=== PATIENT | male | born 1955 | race Caucasian/White ===

== ENCOUNTER 2016-11-28 20:18 | Emergency (ER) | payer SELFPAY ==
[2016-11-28] MEDS ORDERED: ALBUTEROL INH PREPACK MDI TAKEHOME ONE (21:02)
--- NOTE | 2016-11-28 21:09 | UCPHY ---
H & P Time Seen by Provider: 11/28/16 20:42 Patient Type: Established HPI/ROS: This patient has onset of URI symptoms 2 days prior to arrival with nasal congestion, some sinus pressure in the forehead, right ear pressure moderate intensity and a cough. He noticed over the past 24 hours is cough now associated with wheezing and some sputum production which prompted his visit. He notes no exacerbating or alleviating factors for his symptoms. ROS: No high fevers or chills. HEENT: No sore throat. No drainage from his ear. Slightly muffled hearing in the right ear. Pulmonary: No pleuritic pain. No dyspnea. Cardiovascular: No complaints GI: No vomiting or diarrhea. He does have loose stool over the past 24 hours but only to 3 episodes a day. 7 point ROS is otherwise negative. Past Medical/Surgical History: Otherwise healthy Smoking Status: Never smoked Physical Exam: Physical Exam Vital signs are normal. General: No acute distress HEENT: Nose: Clear discharge bilaterally. No sinus tenderness to percussion. Ears: Right external canals clear right TM is clear with a clear effusion. Left external canal and TM are clear. abnormal findings bilaterally. Oropharynx : No erythema or exudates. No dysphonia. No drooling or stridor. Eyes: Pupils equal and react to light. Extraocular motions are intact. Lungs: Mild expiratory wheeze bilaterally. Faint rhonchi. No rales. Cardiac: Regular rate and rhythm with no murmur gallop or rub Skin: No rash or pallor. Neuro: Alert with no focal deficits noted. Initial differential diagnosis: Serous otitis, URI with cough, viral bronchitis Constitutional: Initial Vital Signs Temperature (C) 36.7 C 11/28/16 20:29 Heart Rate 70 11/28/16 20:29 Respiratory Rate 20 11/28/16 20:29 Blood Pressure 176/88 H 11/28/16 20:29 O2 Sat (%) 95 11/28/16 20:29 O2 Delivery Mode Room Air Allergies/Adverse Reactions: Penicillins Allergy (Verified 11/28/16 20:35) Home Medications: Medication Instructions Recorded Fluticasone Nasal [Flonase Nasal 2 sprays NASAL DAILY #1 mdi 11/28/16 [place]] MDM/Departure - [facility] ED Course/Re-evaluation: I counseled patient regarding his serous otitis and bronchitis. We did dispense an albuterol MDI. This patient appears clinically well without clinical findings to suggest lower respiratory infection, bacterial sinusitis, meningitis or other complicating factors. - Depart Disposition: Home, Routine, Self-Care Clinical Impression: Acute viral bronchitis Serous otitis media Qualifiers: Laterality: right Chronicity: acute Recurrence: not specified as recurrent Qualified Code(s): H65.01 - Acute serous otitis media, right ear Upper respiratory infection Qualifiers: URI type: unspecified viral URI Qualified Code(s): J06.9 - Acute upper respiratory infection, unspecified Condition: Good Instructions: Serous Otitis Media (ED) Additional Instructions: Diagnoses: 1. Serous otitis-right ear 2. Viral bronchitis 3. Viral upper respiratory infection Plan: Humidifier Flonase steroid nasal spray Albuterol inhaler for cough, wheeze or shortness of breath Guaifenesin (Robitussin [id number] mucolytic Humidifier Ibuprofen for discomfort/pressure Supplemental zinc. Most viruses clear in 5-10 days Return if you develop fevers, chills, trouble breathing despite the albuterol or other concerns. Prescriptions: Fluticasone Nasal [Flonase Nasal [place]] 2 sprays NASAL DAILY #1 mdi Referrals: JOANA HINES [Primary Care Provider] - As per Instructions - PQRS PQRS Measurement: SUHAS
[2016-11-28 21:25] VITALS: BP 164/82; PULSE 76; RESP 18; TEMP 98.4; O2SAT 97
== END 2016-11-28 21:26 | disposition home or self-care (01) ==
LOC: CED 20:18
DX: J20.8 Acute bronchitis due to other specified organisms (principal); H65.01 Acute serous otitis media, right ear; J06.9 Acute upper respiratory infection, unspecified
CPT/HCPCS: G0463-PO

== ENCOUNTER 2016-11-29 22:33 | Emergency (ER) | payer OTHER ==
[2016-11-29 22:48] VITALS: RESP 20
--- NOTE | 2016-11-29 22:54 | UCPHY ---
H & P Time Seen by Provider: 11/29/16 22:48 Patient Type: Established HPI/ROS: CHIEF COMPLAINT: Cough HISTORY OF PRESENT ILLNESS: The patient is a 61 year old male presenting with cough that started 4 days ago. The patient was seen here yesterday and diagnosed with viral syndrome and serous otitis media. Since that time he has developed intermittent GRANDA with body aches, no prior Influenza immunization this past fall, so he wonders if this is Influenza or Pneumonia and how contagious he is. He was discharged with albuterol and other symptomatic treatment with OTC Robitussin plain treament. The patient states his cough has progressively worsened throughout the day today, now keeping him up. He tried the inhaler, Robitussin, and Ibuprofen, for symptomatic Rx, but found no sustained relief. He developed a sense of fever about 1 hour ago. He also complains of some nasal drainage. REVIEW OF SYSTEMS: Constitutional: Subjective fever Eyes: No discharge ENT: No sore throat, but he does have post nasal drip. Cardiovascular: No chest pain, no palpitations. Respiratory: As above, maybe a slight wheeze as well. No profound improvement on the inhaler. Gastrointestinal: No nausea vomiting or diarrhea. Genitourinary: No unilateral flnak pain Musculoskeletal: No back pain. Skin: No rashes. Neurological: No headache. 10 point ROS otherwise negative Past Medical/Surgical History: Denies. Smoking Status: Never smoked Physical Exam: General Appearance: Alert, no distress. Afebrile. Normal phonation. No respiratory distress. Eyes: Pupils equal and round no pallor or injection. No icterus ENT, Mouth: Mucous membranes moist. Pharynx without erythema or exudate. TM Clear. No sinus tenderness. Neck: No adenopathy. Supple. No JVD. Trachea in midline. Respiratory: There are no retractions, Mild rhonchi without rales or dullness Cardiovascular: Regular rate and rhythm, no murmur. Abdomen: Soft and nontender, no masses, bowel sounds normal. Neurological: Ox3. neck is supple Skin: Warm and dry, no rashes. Musculoskeletal: No joint swelling. Extremities: No edema. Psychiatric: Normal affect. Constitutional: Initial Vital Signs Temperature (C) 36.7 C 11/29/16 22:47 Heart Rate 56 L 11/29/16 22:47 Respiratory Rate 20 11/29/16 22:47 Blood Pressure 194/102 H 11/29/16 22:47 O2 Sat (%) 95 11/29/16 22:47 O2 Delivery Mode Room Air Allergies/Adverse Reactions: Penicillins Allergy (Verified 11/28/16 20:35) Home Medications: Medication Instructions Recorded Fluticasone Nasal [Flonase Nasal 2 sprays NASAL DAILY #1 mdi 11/28/16 [place]] Azithromycin [Zithromax] 250 mg PO DAILY #6 tab 11/29/16 Benzonatate 200 mg PO TID PRN #28 capsule 11/29/16 Medical Decision Making - Diagnostics Imaging: CXR review [facility] by Raidologaddie Petty and report reviewed by me No acute disese ED Course/Re-evaluation: The patient presents with harsh cough that has been worsening throughout the day today despite home Rx as directed.. He was seen here and diagnosed with viral syndrome and otitis media. Due to severity of his cough, which is unrelieved by inhaler, I will check chest x-ray to rule out pneumonia. Plan for nasal swab to test for influenza. Influenza Neg Will Rx with symptomatic cough suppression, started on Tessalon Perles here as well as OTC Afrin recommnedation, avoiding other sympathomimetics due to mild HTN, improved while here but needs follow up. No indication fro antbx at this time. Differential Diagnosis: Differential diagnosis includes but is not limited to the following: URI, pharyngitis, strep pharyngitis, otitis media, sinusitis, bronchitis, pneumonia. - Data Points Medications Given: Discontinued Medications Benzonatate (Tessalon Pearles) 200 mg PO EDNOW ONE Stop: 11/29/16 23:32 Last Admin: 11/29/16 23:50 Dose: 200 mg Departure - Departure Disposition: Home, Routine, Self-Care Clinical Impression: URI, acute Hypertension Qualifiers: Hypertension type: essential hypertension Qualified Code(s): I10 - Essential ( primary) hypertension Condition: Good Instructions: Upper Respiratory Infection (ED), Viral Syndrome (ED) Additional Instructions: For the cough use the benzonatate or Delsym DM four tsp twice daily as needed for cough Consider Afrin nasal spray as a decongestant. Otherwise avoid other over-the- counter cough or cold medicines Do not take the Zithromax unless you fine in a week's time her really no better. Referrals: JOANA HINES [Medical Doctor] - As per Instructions Prescriptions: Azithromycin [Zithromax] 250 mg PO DAILY #6 tab Benzonatate 200 mg PO TID PRN #28 capsule PRN Reason: Cough, Moderate - PQRS PQRS Measurement: NA Report Scribed for: Uriel Zimmer Report Scribed by: Ingris Mcgill Date of Report: 11/29/16 Time of Report: 22:55
[2016-11-29] MEDS ORDERED: BENZONATATE 100 MG CAP PO ONE (23:31)
[2016-11-30] MEDS ORDERED: AZITHROMYCIN 250 MG TAB PO ONE
[2016-11-30 00:17] VITALS: BP 150/95; PULSE 63; TEMP 97.9; O2SAT 92
== END 2016-11-30 00:08 | disposition home or self-care (01) ==
LOC: CED 22:33
DX: J06.9 Acute upper respiratory infection, unspecified (principal); I10 Essential (primary) hypertension
CPT/HCPCS: 71020-PO; 87400-PO; 99214-PO; G0463-PO